=== PATIENT | male | born 1950 | race Caucasian/White ===

== ENCOUNTER 2016-06-18 13:02 | Emergency (ER) | payer MEDICARE, OTHER ==
[~2016-06-18] VITALS: Ht 188 cm; Wt 85.6 kg
[~2016-06-18 13:02] MED LIST: COUM5TAB PO; MMW SSP; PENI500T PO
[2016-06-18 13:10] VITALS: BP 121/70; PULSE 102; RESP 20; TEMP 99.3; O2SAT 92
[2016-06-18] MEDS ORDERED: RESP: ALBUTEROL 2.5 MG/IPRATROPIUM 0.5 MG NEB (SCH) NEB ONE (13:30)
[2016-06-18] MEDS ORDERED: ACETAMINOPHEN 325 MG TAB PO ONE (13:30)
[2016-06-18] MEDS ORDERED: SODIUM CHLOR 0.9% 1000 ML INJ 1,000 ML IV SCH (13:30)
--- NOTE | 2016-06-18 13:34 | PD ---
HPI Chief Complaint: Respiratory Symptoms Time Seen by Provider: 13:20 Travel History International Travel<30 days: No Contact w/Intl Traveler<30days: No Traveled to known affect area: No History of Present Illness HPI This is an otherwise healthy 66-year-old man who presents to the emergency department complaining of being sick for the past couple days of cough cold symptoms with fever. He went to an urgent care and was positive for influenza B. Therefore referred to the emergency department because he had Rales on his exam. All with this symptoms had some loose stools. No vomiting. He has had a slight chest pain. No shortness of breath. No abdominal pain. He reports a trip and fall couple days ago but denies any weakness or lightheadedness. He explicitly denies hitting his head. He is on warfarin. States his is been sick with URI symptoms as well. No other complaints. History Past Medical History Narrative Medical History of Zoraida alejo, on warfarin Social History Alcohol Use: No Tobacco Use: No Allergies-Medications (Allergen,Severity, Reaction): Coded Allergies: No Known Allergies (Unverified , 06/18/16) Reported Meds & Prescriptions Reported Meds & Active Scripts Active Reported Amiodarone (Amiodarone HCl) 100 Mg Tab 100 Mg PO DAILY Warfarin 5 Mg Tab 5 Mg PO DAILY Review of Systems Except as stated in HPI: all other systems reviewed are Neg Physical Exam Narrative GENERAL: 66 year-old man, well-appearing, no acute distress. SKIN: Focused skin assessment warm/dry. HEAD: Atraumatic. Normocephalic. EYES: Pupils equal and round. No scleral icterus. No injection or drainage. ENT: No nasal bleeding or discharge. Mucous membranes pink and moist. NECK: Trachea midline. No JVD. CARDIOVASCULAR: Regular rate and rhythm. No murmur appreciated. RESPIRATORY: No no respiratory distress. Coarse breath sounds with rhonchi throughout the posterior lung perla. GASTROINTESTINAL: Abdomen soft, non-tender, nondistended. Hepatic and splenic margins not palpable. MUSCULOSKELETAL: No obvious deformities. No no edema. NEUROLOGICAL: Awake and alert. No obvious cranial nerve deficits. Motor grossly within normal limits. Normal speech. Data Data Last Documented VS Vital Signs Date Time Temp Pulse Resp B/P Pulse Ox O2 Delivery O2 Flow Rate FiO2 06/18/16 13:10 99.3 102 20 121/70 92 Orders Complete Blood Count With Diff (06/18/16 13:29) Comprehensive Metabolic Panel (06/18/16 13:29) Lactic Acid (06/18/16 13:29) Influenzae A/B Antigen (06/18/16 13:29) Chest, Single Ap (06/18/16 ) Sodium Chlor 0.9% 1000 Ml Inj (Ns 1000 M (06/18/16 13:30) Acetaminophen (Tylenol) (06/18/16 13:30) Albuterol-Ipratropium Neb (Duoneb Neb) (06/18/16 13:30) Prothrombin Time / Inr (Pt) (06/18/16 13:32) Electrocardiogram (06/18/16 13:13) Oseltamivir (Tamiflu) (06/18/16 15:15) Labs Laboratory Tests Test 06/18/16 06/18/16 06/18/16 13:35 13:46 14:20 White Blood Count 5.9 TH/MM3 Red Blood Count 5.18 MIL/MM3 Hemoglobin 15.6 GM/DL Hematocrit 46.5 % Mean Corpuscular Volume 89.7 FL Mean Corpuscular Hemoglobin 30.2 PG Mean Corpuscular Hemoglobin 33.6 % Concent Red Cell Distribution Width 14.2 % Platelet Count 113 TH/MM3 Mean Platelet Volume 9.0 FL Neutrophils (%) (Auto) 79.8 % Lymphocytes (%) (Auto) 7.0 % Monocytes (%) (Auto) 12.6 % Eosinophils (%) (Auto) 0.2 % Basophils (%) (Auto) 0.4 % Neutrophils # (Auto) 4.8 TH/MM3 Lymphocytes # (Auto) 0.4 TH/MM3 Monocytes # (Auto) 0.7 TH/MM3 Eosinophils # (Auto) 0.0 TH/MM3 Basophils # (Auto) 0.0 TH/MM3 CBC Comment DIFF FINAL Differential Comment Lactic Acid Level 1.3 mmol/L Prothrombin Time 17.7 SEC Prothromb Time International 1.6 RATIO Ratio Sodium Level 143 MEQ/L Potassium Level 4.3 MEQ/L Chloride Level 109 MEQ/L Carbon Dioxide Level 24.9 MEQ/L Anion Gap 9 MEQ/L Blood Urea Nitrogen 24 MG/DL Creatinine 1.90 MG/DL Estimat Glomerular Filtration 36 ML/MIN Rate Random Glucose 93 MG/DL Calcium Level 8.2 MG/DL Total Bilirubin 0.8 MG/DL Aspartate Amino Transf 33 U/L (AST/SGOT) Alanine Aminotransferase 24 U/L (ALT/SGPT) Alkaline Phosphatase 51 U/L Total Protein 6.8 GM/DL Albumin 3.1 GM/DL [facility] Medical Decision Making Medical Screen Exam Complete: Yes Emergency Medical Condition: Yes Interpretation(s) My review of EKG: Sinus arrhythmia, rate of 94, normal axis, normal intervals, no ischemia. LABS: CBC is unremarkable. CMP remarkable for mildly elevated BUN/creatinine Lactate normal INR 1.6 Chest x-ray negative Influenza: Positive for flu B. Differential Diagnosis Influenza, pneumonia, URI, heart failure, other Narrative Course Medical decision making INITIAL: This a 66 year-old man who presents to the emergency department with URI symptoms. Reportedly positive for flu B at the urgent care. Exam suggestive of pneumonia. We'll check labs, chest x-ray, reassess. Oxygen saturations around 89-90% however patient denies any shortness of breath or dyspnea on exertion. FINAL: Workup reveals only influenza B. Chest x-rays negative. Patient's oxygen saturations are still in the low 90s. He is however otherwise asymptomatic is worse trouble breathing. I discussed this with him, patient comfortable outpatient follow-up, and agrees to return immediately for any trouble breathing. Diagnosis Primary Impression: Influenza B Additional Instructions: Take Tamiflu as prescribed. Use Mucinex-DM as needed for cough. Follow-up with your primary doctor in the next 5-7 days if you're not feeling improved. Return to the emergency department for any worsening chest pain, trouble breathing, or any other new or worsening symptoms. Med/Other Pt SpecificInfo: Prescription(s) given Scripts Dextromethorphan-Guaifenesin ER 12 HR (Mucinex DM Maximum Strength)60-1,200 Mg Tab1 Tab PO BID PRN (CHEST CONGESTION AND/OR COUGH) #14 TAB Prov:Tej Puga MD 06/18/16 Oseltamivir (Tamiflu)75 Mg Cap75 Mg PO BID 5 Days Ref 0 Prov:Tej Puga MD 06/18/16 Disposition: 01 DISCHARGE HOME Condition: Stable Tej Puga MD Jun 18, 2016 13:34
[2016-06-18] MEDS ORDERED: AMIO0.1T PO (13:36)
[2016-06-18] MEDS ORDERED: WARF-23 PO (13:36)
--- NOTE | 2016-06-18 13:49 | RADHPO ---
EXAM DATE/TIME: 06/18/2016 13:29 [facility] COMPARISON: No previous studies available for comparison. INDICATIONS : Fever, cough. MEDICAL HISTORY : Deep venous thrombosis. Coronary artery disease. SURGICAL HISTORY : CABG. ENCOUNTER: Initial ACUITY: 2 days PAIN SCORE: 5/10 LOCATION: chest FINDINGS: A single view of the chest demonstrates the lungs to be symmetrically aerated without evidence of mas s, infiltrate or effusion. The cardiomediastinal contours are unremarkable. Osseous structures are intact. Median sternotomy wires are noted. CONCLUSION: No acute disease. Ismael De Oliveira MD on June 18, 2016 at 13:47 Board Certified Radiologist. This report was verified electronically.
[2016-06-18 13:55] LABS: AUTOMATED NEUTROPHIL # 4.8 TH/MM3 (1.8-7.7); BASOPHIL % 0.4 % (0.0-2.0); EOSINOPHIL % 0.2 % (0.0-4.0); HEMATOCRIT 46.5 % (39.0-51.0); LYMPHOCYTE # 0.4 TH/MM3 (1.0-4.8); MEAN CELL VOLUME 89.7 FL (80.0-100.0); MEAN CORPUSCULAR HEMOGLOBIN 30.2 PG (27.0-34.0); MEAN CORPUSCULAR HGB CONC 33.6 % (32.0-36.0); MONO % 12.6 % (0.0-8.0); NEUT % 79.8 % (16.0-70.0); PLATELET COUNT 113 TH/MM3 (150-450); RED BLOOD COUNT 5.18 MIL/MM3 (4.50-5.90); RED CELL DISTRIBUTION WIDTH 14.2 % (11.6-17.2); WHITE BLOOD COUNT 5.9 TH/MM3 (4.0-11.0)
[2016-06-18 14:08] LABS: HEMO FLAGS DIFF FINAL
[2016-06-18 14:53] LABS: CHLORIDE 109 MEQ/L (98-107); POTASSIUM 4.3 MEQ/L (3.5-5.1); SODIUM (NA) 143 MEQ/L (136-145)
[2016-06-18 14:55] LABS: INTERNATIONAL NORMALIZED RATIO 1.6 RATIO; PROTHROMBIN TIME - PATIENT 17.7 SEC (9.8-11.6)
[2016-06-18 14:58] LABS: ANION GAP 9 MEQ/L (5-15); BICARBONATE 24.9 MEQ/L (21.0-32.0); BLOOD UREA NITROGEN 24 MG/DL (7-18)
[2016-06-18 15:01] LABS: ALT (GPT) 24 U/L (12-78)
[2016-06-18 15:02] LABS: GLOMERULAR FILTRATION RATE 36 ML/MIN (>89)
[2016-06-18 15:03] LABS: AST (GOT) 33 U/L (15-37); TOTAL BILIRUBIN ADULT 0.8 MG/DL (0.2-1.0)
[2016-06-18 15:06] LABS: ALKALINE PHOSPHATASE 51 U/L (45-117)
[2016-06-18] MEDS ORDERED: OSEL75 PO (15:14)
[2016-06-18] MEDS ORDERED: DEXT1TAB18 PO (15:14)
[2016-06-18] MEDS ORDERED: OSELTAMIVIR PHOSPHATE 75 MG CAP PO ONE (15:15)
--- NOTE | 2016-06-19 17:22 | EKG ---
Date Performed: 06/18/2016 Time Performed: 13:13:28 PTAGE: 66 years EKG: Sinus arrhythmia Normal ECG NO PREVIOUS TRACING DOCTOR: Franklyn Clement Interpretating Date/Time 06/19/2016 17:21:10
== END 2016-06-18 15:48 | disposition home or self-care (01) ==
LOC: PHED 13:02
DX: J11.1 Influenza due to unidentified influenza virus with other respiratory manifestations (principal); I48.91 Unspecified atrial fibrillation; Z79.01 Long term (current) use of anticoagulants
CPT/HCPCS: 71010; 80053; 83605; 85025; 85610; 87804; 93005; 94664; 96360; 99284; J7030